=== PATIENT | female | born 1965 | race Caucasian/White ===

== ENCOUNTER 2016-04-12 14:17 | Emergency (ER) | payer OTHER, MEDICARE ==
[~2016-04-12] VITALS: Ht 149.9 cm; Wt 59.1 kg
[~2016-04-12 14:17] MED LIST: ACET-171 PO; ACYC200C PO; ASPI-973 PO; ATOR10TA66 PO; COR10 PO; ESTR1VAG3 VG; FEBU40TA PO; HYDR2TAB28 PO; LIDO5CRE17 TOPICAL; LOV60 SUBQ; MULT-1018 PO; ONDA4TAB6 PO; OXYC15TA73 PO; SERT50TA PO; TACR1CAP PO
[2016-04-12 14:21] VITALS: BP 145/91; PULSE 82; RESP 20; O2SAT 95
[2016-04-12 15:19] LABS: BASOPHILS % (AUTO) 0.2 % (0-3); EOSINOPHILS % (AUTO) 2.4 % (0-5); MONOCYTES % (AUTO) 9.3 % (4-12); Mean Corpuscular Volume 97.7 fL (81-100); NEUTROPHILS % (AUTO) 64.2 % (40-74); Platelet Count 147 bil/L (150-400)
[2016-04-12 15:22] VITALS: BP 132/79; PULSE 71; RESP 15; O2SAT 99
[2016-04-12] MEDS ORDERED: 0.9% Sodium Chloride 500 ML IV ONE (16:40)
--- NOTE | 2016-04-12 17:22 | ED.REPORT ---
HPI-Abd Pain F 40 and Over Date of Service Apr 12, 2016 ED Provider: Daniel Santana DO Alisa Hightower is a 51-year-old female with past medical history of organ transplants, chronic kidney disease stage IV colon resection surgery with 4 recent hospitalizations at for PE, dehydration, metabolic acidosis and C. difficile infection. Presents to ED secondary to abdominal pain x 2 days intractable diarrhea. She also endorses right anterior thigh pain just distal to inguinal area secondary to recent Port-A-Cath placement 3 days ago, area is painful and tender to palpation and swollen. Patient has diffuse ecchymosis throughout lower extremities though she does endorse taking Lovenox. Nursing Notes Stated Complaint: POSSIBLE C DIFF/SENT FROM URGENT CARE Chief Complaint: Female Abdominal Pain Nursing Notes Reviewed: Yes Allergies: Coded Allergies: Cephalosporins (Verified Allergy, Unknown, Anaphylaxis, 08/29/15) Penicillins (Verified Allergy, Unknown, Anaphylaxis, 08/29/15) Potassium Clavulanate (Verified Allergy, Unknown, 08/29/15) "laryngeal spasm" Sulfa (Sulfonamide Antibiotics) (Verified Allergy, Unknown, Rash,Itching, , 08/29/15) cyclosporine (Verified Allergy, Unknown, 08/29/15) "confusion" diphenhydramine HCl (Verified Allergy, Unknown, 08/29/15) "tachyphylaxis" mycophenolate mofetil (Verified Allergy, Unknown, 08/29/15) "pancytopenia" sirolimus (Verified Allergy, Unknown, 08/29/15) "pancytopenia" ticarcillin disodium (Verified Allergy, Unknown, 08/29/15) "laryngeal spasm" Uncoded Allergies: siolimus (Allergy, Unknown, 08/28/13) Scheduled Acyclovir (Acyclovir) 200 Mg Capsule 400 MG PO DAILY Aspirin (Aspirin) 81 Mg Tablet 81 MG PO DAILY Atorvastatin Calcium (Atorvastatin Calcium) 10 Mg Tablet 10 MG PO DAILY Enoxaparin (Lovenox) 60 Mg/0.6 Ml Syringe 60 MG SUBQ Q12 Febuxostat (Uloric) 40 Mg Tablet 40 MG PO DAILY Hydrocortisone (Cortef) 10 Mg Tablet 15 MG PO MORNING Hydrocortisone (Cortef) 10 Mg Tablet 10 MG PO HS Multivitamin (Multi Vitamin Daily) 1 Each Tablet 1 EACH PO DAILY Oxycodone ER (Oxycontin) 15 Mg Tab.er.12h 15 MG PO BID Sertraline HCl (Zoloft) 50 Mg Tablet 75 MG PO DAILY Tacrolimus (Prograf) 1 Mg Capsule 3 MG PO HS Vancomycin (Vancomycin) 250 Mg Capsule 250 MG PO QID Scheduled PRN Acetaminophen (Acetaminophen) 500 Mg Tablet 500 MG PO Q6H PRN PRN For Fever Hydromorphone (Hydromorphone) 2 Mg Tablet 2-4 MG PO Q4H PRN PRN Pain Ondansetron (Zofran) 4 Mg Tablet 4 MG PO Q4H PRN PRN For Nausea Miscellaneous Medications Estradiol Acetate (Femring) 1 Each Vag.ring 1 EACH VG Lidocaine Cream (Lidocaine Cream) 5 Gm Cream..g. 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 Review of Systems Constitutional: Denies: Chills, Fever Respiratory: Denies: Shortness of breath Cardiovascular: Denies: Chest pain GI: Reports: Diarrhea, Nausea, Denies: Abdominal pain, Bloody/tarry stool, Mucousy stool, Vomiting Physical Exam General: Moderate distress, well-developed, well-nourished, appropriately interactive HEENT: Normocephalic, atraumatic. External ears without defect. Pupils equal, round, and reactive to light and accommodation. Cardiovascular: Regular rate and rhythm with no murmurs, rubs, or gallops appreciated Pulmonary: Clear to auscultation bilaterally with no crackles, wheezes, or rhonchi. Normal respiratory effort with no use of accessory muscles. Abdomen: Bowel tones present. Soft, nontender, nondistended. No rebound tenderness or guarding. Extremities: No clubbing, cyanosis, edema, or lymphadenopathy appreciated. Patient's lower right extremity thigh just distal to the inguinal area has a large erythematous/ecchymotic region surrounding recent Port-A-Cath insertion site. This area is slightly warmer than opposite limb and painful to palpation. Patient states pain does radiate up into groin. Neurological: Cranial nerves grossly intact. Normal muscle strength, tone, and bulk. Psychiatric: Normal mood and affect. Alert and oriented to person, place, and time. Vital Signs Vital Signs (First) Date Time Temp Pulse Resp B/P Pulse Ox O2 Delivery O2 Flow Rate FiO2 04/12/16 14:21 37.2 82 20 145/91 95 Room Air Interpretation & Diagnostics Lab Results Interpretation Result Diagram: 04/12/16 1505 04/12/16 1505 Test 04/12/16 15:05 White Blood Count 5.5th/mm3 (3.8-10.1) Red Blood Count 3.03mil/mm3 (3.90-5.20) Hemoglobin 9.4g/dL (12.0-15.6) Hematocrit 29.6% (35.0-46.0) Mean Corpuscular Volume 97.7fL (81-100) Mean Corpuscular Hemoglobin 31.0pg (27.0-35.0) Mean Corpuscular Hemoglobin Concent 31.8% (32.0-37.0) Red Cell Distribution Width 13.6% (12.3-15.4) Platelet Count 147bil/L (150-400) Neutrophils (%) (Auto) 64.2% (40-74) Lymphocytes (%) (Auto) 23.5% (14-46) Monocytes (%) (Auto) 9.3% (4-12) Eosinophils (%) (Auto) 2.4% (0-5) Basophils (%) (Auto) 0.2% (0-3) Prothrombin Time 10.4sec (8.1-12.5) Prothromb Time International Ratio 0.97ratio Sodium Level 136mEq/L (134-144) Potassium Level 4.5mEq/L (3.5-5.2) Chloride Level 104mEq/L (97-108) Carbon Dioxide Level 17mmol/L (18-29) Blood Urea Nitrogen 40mg/dL (6-24) Creatinine 3.63mg/dL (0.57-1.00) Estimat Glomerular Filtration Rate 19mL/min (>59) Glucose Level 126mg/dL (60-99) Calcium Level 9.2mg/dL (8.5-10.1) Magnesium Level 2.0mg/dL (1.6-2.6) Total Bilirubin 0.2mg/dL (0.0-1.2) Aspartate Amino Transf (AST/SGOT) 25U/L (0-50) Alanine Aminotransferase (ALT/SGPT) 62U/L (0-32) Alkaline Phosphatase 158U/L (25-150) Total Protein 7.1g/dL (6.4-8.4) Albumin 3.5g/dL (3.4-5.0) Lipase 18U/L (13-60) Hold Luu Top Tube Received (Received) Re-Eval/Medical Decision Med Decision/Clinical Course Patient has recent history of C. difficile infection and reportedly finished antibiotic course vancomycin 2/3 days ago. Stool culture sent to lab however microbiology tech unavailable today secondary to federal holiday. Lab work showed elevated BUN/Cr consistent with past values and her Dx of CKD. WBC unremarkable however this is unreliable given her current immunosuppressant use. PT given 500ml NS Bolus, VS remained stable throughout ED stay. Some concern of cellulitis, Ultrasound of right thigh obtained which showed edema in the area and no evidence of abscess or fluid collection. rn occupational health nephrology fellow contacted. Report was given and Pt's name and communicated. Per nephrology they will contact Pt tomorrow regarding her ED visit and schedule further evaluation if nessisary. Pt started Restarted on oral Vancomycin, paper script given as Pt states she still has some tablets left. Patient's plan is to follow up with you to have nephrology, discharged to home in stable condition with strict instructions of when and why to return to the emergency department. Counseled Regarding: Diagnosis, When/why to return to ED Discharge & Departure Primary Impression: Colitis due to Clostridium difficile Disposition: Home Discharge Condition All VS Reviewed: Yes Condition: Stable Additional Instructions: The diarrhea or experiencing is most likely due to recurrence of your C. difficile infection. I have given you a prescription for 250 mg tablets of vancomycin please take this medication every 6 hours for the next 10-14 days. Ultrasound of your leg surrounding your recent Port-A-Cath placement site did not show any evidence of abscess or fluid collection, it did show some edema to the area which is not concerning for cellulitis. At this point we do not believe it necessary to initiate antibiotic treatment for cellulitis. Please follow up with nephrology regarding today's ED visit as well as management. I did speak with them tonight in the emergency department and you should expect a call from them tomorrow. If you do not hear from them please take the initiative and contact them yourself regarding today's ED visit. Please also follow up regarding your microbiology results regarding possible C. difficile infection. He did not hear back from schedule a hospital tomorrow, please call the hospital mid-day inquiring about this lab result. If you develop fevers, dizziness nausea/vomiting or diarrhea gets markedly worse and you noted or you notice blood/mucousy diarrhea please return to the ED for additional evaluation. If your leg becomes severely swollen and painful or you notice fluid discharge from the wound site please also return to the ED for additional management. Referrals: Presley Kumar MD (PCP) Attending Statement The patient was seen and examined together with Dr. Garcia on 04/12/16 and I have added additional information to the note above. copies to: Presley Kumar MD, GILES A DO Apr 12, 2016 15:41 Daniel Santana DO Apr 12, 2016 19:02
[2016-04-12 18:35] LABS: INR 0.97 ratio
[2016-04-12] MEDS ORDERED: VANC250C3 PO (18:59)
[2016-04-12 19:22] VITALS: BP 143/80; PULSE 80; RESP 16; O2SAT 97
--- NOTE | 2016-04-12 19:47 | DRSVH ---
PROCEDURE: US EXTREMITY SONOGRAM LIMITED ([id number]) INDICATIONS: 51 year-old female with left thigh Port-A-Cath inserted 2 days ago, with postoperative p ain and bruising. TECHNIQUE: Real-time scanning was performed of the left upper thigh, with image documentation. COMPARISON: None. FINDINGS: In the left upper thigh, no soft tissue fluid collections are noted. There is subcutaneous edema. IMPRESSION: No postoperative fluid collections or abscesses around the left thigh Port-A-Cath placeme nt site. Dictated by: Reymundo Jones M.D. on 04/12/2016 at 19:45 Approved by: Reymundo Jones M.D. on 04/12/2016 at 19:45
[2016-08-02] MEDS ORDERED: VANC125C10 PO (09:16)
[2016-08-02] MEDS ORDERED: SEVE800T7 PO (10:29)
== END 2016-04-12 19:25 | disposition home or self-care (01) ==
LOC: SED 14:17
DX: A04.7 Enterocolitis due to Clostridium difficile (principal); K21.9 Gastro-esophageal reflux disease without esophagitis; I10 Essential (primary) hypertension; Z79.82 Long term (current) use of aspirin; Z88.0 Allergy status to penicillin; Z88.1 Allergy status to other antibiotic agents; Z88.2 Allergy status to sulfonamides; Z88.8 Allergy status to other drugs, medicaments and biological substances
CPT/HCPCS: 36415; 76882; 80053; 83690; 83735; 85025; 85610; 87493; 96360; 99285; J7040

== ENCOUNTER 2016-11-14 11:13 | Emergency (ER) | payer OTHER, MEDICARE ==
[~2016-11-14] VITALS: Ht 149.9 cm; Wt 58.2 kg
[~2016-11-14 11:13] MED LIST changes: -ACYC200C PO; -HYDR2TAB28 PO; -LIDO5CRE17 TOPICAL; -LOV60 SUBQ; +SEVE800T7 PO; +VANC125C10 PO
[2016-11-14 11:21] VITALS: BP 124/88; PULSE 90; RESP 16; O2SAT 100
--- NOTE | 2016-11-14 11:42 | ED.REPORT ---
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 Associated symptoms including swelling, bruising, erythema and nausea. She denies fever or vomiting. The patient reports that she hasn't been wearing her braces but doesn't remember any recent injury. Nursing Notes Stated Complaint: POSS BROKEN FOOT Chief Complaint: Extremity Trauma Nursing Notes Reviewed: Yes Allergies: Coded Allergies: Cephalosporins (Verified Allergy, Unknown, Anaphylaxis, 11/14/16) Penicillins (Verified Allergy, Unknown, Anaphylaxis, 11/14/16) Potassium Clavulanate (Verified Allergy, Unknown, 11/14/16) "laryngeal spasm" Sulfa (Sulfonamide Antibiotics) (Verified Allergy, Unknown, Rash,Itching, , 11/14/16) cyclosporine (Verified Allergy, Unknown, 11/14/16) "confusion" diphenhydramine HCl (Verified Allergy, Unknown, 11/14/16) "tachyphylaxis" mycophenolate mofetil (Verified Allergy, Unknown, 11/14/16) "pancytopenia" sirolimus (Verified Allergy, Unknown, 11/14/16) "pancytopenia" ticarcillin disodium (Verified Allergy, Unknown, 11/14/16) "laryngeal spasm" Uncoded Allergies: siolimus (Allergy, Unknown, 08/28/13) Scheduled Aspirin (Aspirin) 81 Mg Tablet 81 MG PO DAILY Atorvastatin Calcium (Atorvastatin Calcium) 10 Mg Tablet 10 MG PO DAILY Febuxostat (Uloric) 40 Mg Tablet 40 MG PO DAILY Hydrocortisone (Cortef) 10 Mg Tablet 15 MG PO MORNING Hydrocortisone (Cortef) 10 Mg Tablet 10 MG PO HS Multivitamin (Multi Vitamin Daily) 1 Each Tablet 1 EACH PO DAILY Oxycodone ER (Oxycontin) 15 Mg Tab.er.12h 15 MG PO BID Sertraline HCl (Zoloft) 50 Mg Tablet 75 MG PO DAILY Sevelamer Carbonate (Renvela) 800 Mg Tablet 800 MG PO TID Tacrolimus (Prograf) 1 Mg Capsule 3 MG PO HS Vancomycin (Vancomycin) 125 Mg Capsule 125 MG PO DAILY Scheduled PRN Acetaminophen (Acetaminophen) 500 Mg Tablet 500 MG PO Q6H PRN PRN For Fever Ondansetron (Zofran) 4 Mg Tablet 4 MG PO Q4H PRN PRN For Nausea Miscellaneous Medications Estradiol Acetate (Femring) 1 Each Vag.ring 1 EACH VG General Time Seen by MD: 11:31 Chief Complaint Foot injury right Hx Obtained From: Patient Arrived By: Walk-in Onset Occurred: Yesterday Symptom Duration: Since onset Location: : Foot right Quality: Painful Associated with: Reports: Nausea Exacerbated by: Movement Past Medical History Past Medical History anxiety cystic fibrosis s/p bilateral lung transplant Reports: GERD, Hypertension Past Surgical History significant history for 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 Social History Other Social History: Good social support Ambulatory Status Independent Review of Systems Constitutional: Denies: Fever Musculoskeletal: Reports: Extremity pain (right foot) Skin: Reports Bruising, Reports Swelling, Denies Itching, Denies Rash Neurologic: Denies: Numbness, Weakness Complete sys rev & neg: except as marked. Physical Exam Initial Vital Signs Vital Signs (First) Date Time Temp Pulse Resp B/P Pulse Ox O2 Delivery O2 Flow Rate FiO2 11/14/16 11:21 36.4 90 16 124/88 100 Room Air Initial VS: Reviewed Lower Extremity / Pelvis / MS: Atraumatic, Inspection NL Ankle / Foot: Neurologic intact, Vascular intact bruising and swelling to the dorsum of the right farm machine tender to touch General/Constitutional: Awake, Alert Respiratory / Chest: Atraumatic, No respiratory distress Skin: No rash, Warm, Dry Neurologic: Oriented X3, Speech NL, No motor deficits, No sensory deficits Head / Eyes: Atraumatic, Normocephalic, PERRL, EOMI Psychiatric: Affect NL, Mood NL Interpretation & Diagnostics X-Ray Interpretation Xray Interpretation: IMPRESSION: 1. Prominent atherosclerotic calcification. No soft tissue swelling or ulcerated tissue is seen. 2. Stress reaction lateral base of fifth metatarsal Dictated by: Jeorme Diaz M.D. on 11/14/2016 at 11:56 Approved by: Jerome Diaz M.D. on 11/14/2016 at 11:58 X-Ray Ordered: Foot right Interpretation / Wet Read by: Interpret - Radiologist Re-Eval/Medical Decision Med Decision/Clinical Course 51-year-old female history of cystic fibrosis, bilateral foot drop due to bilateral compartment syndrome presenting with right foot pain. She does denies any trauma. She does drag her foot planted time has not been using her brace lately. X-ray shows just reaction at the base of the right fifth metatarsal. There is no evidence of fracture. There is mild erythema over this site. No evidence of infection. There is no evidence of abscess. Patient will treated with rest ice compress and elevate Tylenol as needed for pain as she cannot take NSAIDs. Return precautions given if any sign symptoms of infection or any other new or worsening symptoms. Re-Evaluation/Progress : Time of Eval: 12:34 Re-Evaluation/Progress Note: Discussed X-ray and plan for discharge. Patient understands and agrees to plan. All questions were addressed. Counseled Regarding: Diagnosis, Lab results, Need for follow-up, When/why to return to ED Discharge & Departure Impression: Primary Impression: Foot pain, right Disposition: Home Discharge Condition All VS Reviewed: Yes Condition: Stable Additional Instructions: Your X-ray showed no evidence of a fracture but there was a stress reaction ( inflammation). Weight and activity as tolerated by your pain. You can use rotating heat and ice, 30 minutes at a time, 3 times a day. We recommend putting the ice and heat over the top of an Ethan wrap. You can use the Ethan wrap as needed to help with pain. You can take Tylenol for pain if needed. Follow up with your primary care physician next week if your symptoms persist. Return to the emergency department if you develop any new or concerning signs of infection; spreading redness, increasing pain, or swelling. Referrals: Presley Kumar MD (PCP) [place] Attestation Portions of this note were transcribed by Irina West. I, Dr. Mcdaniel personally performed the history, physical exam and medical decision-making; I reviewed and confirmed the accuracy of the information in the transcribed note. Signed by: Edmond Sena, 11/14/16 copies to: Presley Kumar MD, Ben M MD Nov 14, 2016 11:42 [place] Nov 14, 2016 12:15
--- NOTE | 2016-11-14 12:00 | DRSVH ---
PROCEDURE: X-RAY RIGHT FOOT COMPLETE, MINIMUM THREE VIEWS ([id number]) INDICATIONS: unknown bruising and swelling TECHNIQUE: 3 views of the foot were acquired. COMPARISON: None. FINDINGS: Bones: No fractures or dislocations. Since the study of 2012 there is some focal thickening of roseann x in the lateral base of the fifth metatarsal consistent with a stress reaction. Soft tissues: No tibiotalar joint effusion. Achilles tendon appears normal. Prominent arterial vas cular calcification, suggesting a 51-year-old metabolic abnormality. IMPRESSION: 1. Prominent atherosclerotic calcification. No soft tissue swelling or ulcerated tissue is seen. 2. Stress reaction lateral base of fifth metatarsal Dictated by: Jerome Diaz M.D. on 11/14/2016 at 11:56 Approved by: Jerome Diaz M.D. on 11/14/2016 at 11:58
== END 2016-11-14 13:13 | disposition home or self-care (01) ==
LOC: SED 11:13
DX: M79.671 Pain in right foot (principal); I13.11 Hypertensive heart and chronic kidney disease without heart failure, with stage 5 chronic kidney disease, or end stage renal disease; N18.6 End stage renal disease; K21.9 Gastro-esophageal reflux disease without esophagitis; Z86.73 Personal history of transient ischemic attack (TIA), and cerebral infarction without residual deficits; Z86.711 Personal history of pulmonary embolism; Z79.01 Long term (current) use of anticoagulants; Z99.2 Dependence on renal dialysis; Z79.82 Long term (current) use of aspirin; Z88.0 Allergy status to penicillin; Z88.1 Allergy status to other antibiotic agents; Z88.2 Allergy status to sulfonamides; Z88.8 Allergy status to other drugs, medicaments and biological substances